=== PATIENT | male | born 1955 | race Caucasian/White ===

== ENCOUNTER 2023-12-12 15:32 | Emergency (ER) | payer SELFPAY ==
[2023-12-12 15:53] VITALS: PULSE 62; BMI 29.5
[2023-12-12 18:28] VITALS: BP 179/92; RESP 20; TEMP 97.3
== END 2023-12-12 18:31 | disposition home or self-care (01) ==
LOC: JER 15:32
DX: I10 Essential (primary) hypertension (principal)
CPT/HCPCS: 93005; 93010; 99283-25